=== PATIENT | female | born 1955 | race Caucasian/White ===

== ENCOUNTER → 2021-04-15 | Outpatient (CLI) | payer MEDICARE | END | disposition home or self-care (01) | LOC: SHCH 09:45 | PROVIDERS: ATTEND Internal Medicine | DX: I37.1 Nonrheumatic pulmonary valve insufficiency (principal); R94.31 Abnormal electrocardiogram [ECG] [EKG]; R01.1 Cardiac murmur, unspecified; R55 Syncope and collapse | CPT/HCPCS: 93306; 93356 ==

== ENCOUNTER → 2022-09-09 | Outpatient (CLI) | payer OTHER ==
[~2022-09-09] MED LIST: REGADENOSON 0.4 MG/5 ML PF SYG IVP ONE
== END | disposition home or self-care (01) ==
LOC: SHCH 08:09
PROVIDERS: ATTEND Internal Medicine
DX: R94.39 Abnormal result of other cardiovascular function study (principal); I45.10 Unspecified right bundle-branch block; R07.9 Chest pain, unspecified; I10 Essential (primary) hypertension
CPT/HCPCS: 78452; 96374; 93017; J2785; A9500 ×2

== ENCOUNTER → 2023-09-30 | Outpatient (CLI) | payer OTHER ==
[~2023-09-30] MED LIST changes: +ASPI-449 PO; +ATORVASTATIN PO; +LEVO125C4 PO; +LOSA50TA64 PO; +MELO-106 PO; +MULTIVITAMIN PO; +PANT40TA54 PO; -REGADENOSON 0.4 MG/5 ML PF SYG IVP ONE
== END | disposition home or self-care (01) ==
LOC: RAH 10:49
PROVIDERS: ATTEND Family Medicine
DX: M77.32 Calcaneal spur, left foot (principal); M79.672 Pain in left foot
CPT/HCPCS: 73650

== ENCOUNTER 2024-09-15 06:32 | Day surgery (SDC) | payer OTHER ==
[2024-09-14 10:06] LABS: BASOPHILS # (AUTO) 0.05 K/uL (0.00-0.20); BASOPHILS % (AUTO) 0.8 % (0.0-5.0); EOSINOPHILS # (AUTO) 0.12 K/uL (0.00-0.70); HEMATOCRIT 42.1 % (36-48); IMMATURE GRANULOCYTE ABSOLUTE 0.04 K/uL (0-1); LYMPHOCYTES # (AUTO) 0.7 K/uL (1.0-4.8); LYMPHOCYTES % (AUTO) 12.5 % (21.0-51.0); MEAN CORPUSCULAR HEMOGLOBIN 30.3 pg (27.0-33.0); MEAN CORPUSCULAR HGB CONC 33.5 g/dL (32.0-36.0); MEAN CORPUSCULAR VOLUME 90.5 fL (79-99); MONOCYTES # (AUTO) 0.4 K/uL (0.1-1.0); MONOCYTES % (AUTO) 6.8 % (3.0-13.0); NEUTROPHILS # (AUTO) 4.6 K/uL (1.8-7.7); NEUTROPHILS % (AUTO) 77.2 % (40.0-77.0); PLATELET COUNT (AUTO) 176 K/uL (130-400); RED BLOOD CELL COUNT(AUTO) 4.65 MIL/uL (4.00-5.50); RED CELL DISTRIBUTION WIDTH 13.7 % (11.0-15.5); WHITE BLOOD COUNT (AUTO) 5.9 K/uL (4.8-10.8)
[2024-09-14 10:19] VITALS: BP 159/73; PULSE 63; RESP 18; TEMP 97.9
[2024-09-14 10:20] LABS: POTASSIUM 4.4 mmol/L (3.5-5.1)
--- NOTE | 2024-09-14 10:45 | EKG ---
[facility] Test Date: 2024-09-14 Test Time: 10:34:28 Pat Name: LESTER DUMONT Department: [facility] Room: [facility] Gender: F Stockkeeper: [id number] : 1955 Requested By: JONH ECHEVERRIA Order Number: [id number] Reading MD: Paige Mejia Measurements Intervals [place] Rate: 58 P: 24 SC: 268 QRS: -24 QRSD: 180 T: 52 QT: 485 QTc: 477 Interpretive Statements Sinus rhythm Prolonged SC interval Right bundle branch block Compared to ECG 09/25/2022 09:59:18 Sinus bradycardia no longer present Electronically Signed On 09-15-2024 08:16:57 CLOTH WEIGHER by Paige Mejia Please click the below link to view image of tracing.
--- NOTE | 2024-09-14 14:14 | NUR ---
report dr holcomb reviewed ekg. ok to proceed
[2024-09-15] VITALS (12 sets, daily range): BP systolic 124–146; BP diastolic 54–87; PULSE 58–65; RESP 16–20; TEMP 97.3–208.2
[~2024-09-15] VITALS: Ht 170.2 cm; Wt 105.5 kg
[~2024-09-15 06:32] MED LIST changes: +HYDR25TA PO; -MELO-106 PO; -MULTIVITAMIN PO; +NYQUIL PO
[2024-09-15] MEDS: LACTATED RINGERS 1000ML 1,000 ML IV ONE (08:15)
[2024-09-15] MEDS ORDERED: GLYCOPYRROLATE 0.2 MG/ML 5 ML VIAL ONE (11:43)
[2024-09-15] MEDS ORDERED: dexaMETHasone SOD PHOSPHATE 10MG/ML 1ML VIAL ONE (11:43)
[2024-09-15] MEDS ORDERED: LIDOCAINE PF 100MG/5ML (2%) SYRINGE 5ML ONE (11:43)
[2024-09-15] MEDS ORDERED: SUCCINYLCHOLINE CHLORIDE 20 MG/ML 10 ML VIAL ONE (11:44)
[2024-09-15] MEDS ORDERED: proPOFol 10 MG/ML 20ML VIAL IV ONE (11:44)
[2024-09-15] MEDS ORDERED: rocuRONium bROMide 10MG/1ML 5ML VL ONE (11:44)
[2024-09-15] MEDS ORDERED: NEOSTIGMINE METHYLSULFATE 1MG/ML IV ONE (11:44)
[2024-09-15] MEDS ORDERED: FENTanyl CITRate PF 50 MCG/1 ML 2ML VIAL ONE (11:45)
[2024-09-15] MEDS ORDERED: MIDAZOLAM HCL 1 MG/ML 2ML VIAL ONE (11:45)
[2024-09-15] MEDS: ceFAZolin SODIUM 3 GM VIAL IVPB ONE (12:00)
[2024-09-15] MEDS: BUPIvacaine/PF 0.25% 30ML VIAL IJ ONE (12:05)
[2024-09-15] MEDS ORDERED: ePHEDrine SULFate 50 MG/ML AMPULE ONE (12:42)
[2024-09-15] MEDS ORDERED: ROPivacaine 0.5% 5MG/ML 30ML ONE (13:44)
--- NOTE | 2024-09-15 14:35 | OP ---
Operative Note: DATE OF PROCEDURE: 09/15/24 SURGEON: JONH ECHEVERRIA DPM SHEARING SHED HAND: None ANESTHESIA: General PREOPERATIVE DIAGNOSIS: 1. Hallux varus right foot 2. Hammertoe deformities 2nd through 4 right foot 3. Metatarsalgia 2nd through 4th right foot POSTOPERATIVE DIAGNOSIS: Same Findings: Severe lateral deviation of the lesser digits were noted PROCEDURE: 1. Modified Ch procedure right foot 2. Metatarsal osteotomies 2 through 4 metatarsals right foot 3. Correction of hammertoe deformity with PIPJ fusion and MPJ balancing 2 through 4 right foot ESTIMATED BLOOD LOSS: Minimal INDICATIONS: Patient has exhausted the conservative measures and now requesting surgical repair. Injectables: 20 cc of 0.25% Marcaine plain Specimen: None Materials: 2.2 mm cortical screws times a and 2.7 mm cortical screw x1, 4-0 Vicryl, 4-0 Prolene Hemostasis: Pneumonic calf tourniquet at 250 mm Hg DESCRIPTION OF PROCEDURE: Patient was brought into the operating room placed on table in a supine position and general anesthesia was induced. Time-out was called with all the staff in the room to identify the patient, procedure and procedure site. Pneumatic calf tourniquet was placed with adequate padding. Patient's right foot was prepped and draped in usual aseptic manner, exsanguinated utilizing Esmarch bandage and pneumonic calf tourniquet was inflated at 250 mm Hg. Procedure 1. Modified Ch procedure: Linear longitudinal incision of approximately 3 cm was made at the insertion of the abductor hallucis at around the 1st metatarsophalangeal joint. Subcutaneous tissue layer was dissected down to the deep fascial layer. The tendon of the abductor hallucis was then identified just proximal to the 1st metatarsophalangeal joint. It was isolated from the surrounding soft tissue and transected at the level proximal to the 1st MPJ. Procedure 2. Metatarsal osteotomies 2 through 4 column linear longitudinal incision was made from the MPJ to PIPJ of 2nd, 3rd and 4th rays. Incision was deepened through subcutaneous tissue layer care being taken to retract and protect all the vital neurovascular structures. Long extensor tendons were then transected at the level of the MPJ. Capsular layer was also transected transversely to relieve the dorsal contractures of the MPJ 2nd to 4th. Metatarsal heads 2 through 4 now exposed by releasing the collateral ligament. Oblique osteotomy was then made from distal dorsal to proximal plantar. The capital fragments of 2nd, 3rd and 4th metatarsals were then translated proximally laterally. The metatarsal heads were also angulated medially to reduce the laterally deviated lesser digits. Capital fragments were temporary fixated utilizing K-wires and the position of the metatarsal heads are confirmed under fluoroscopy in multiple views. Permanent fixation was achieved utilizing cortical screws x2 for each metatarsal bone. All the screws were placed in lag fashion following standard AO technique. Procedure 3. Correction of the hammertoe deformities 2 through 4 with PIPJ arthrodesis: At this point extensor tendon was transected at the level of the PIPJ and capsular dissection was taken to expose the base of the middle phalanges and heads of the proximal phalanges. Pre-drilling was then achieved into the proximal and middle phalanges and intramedullary screw fixation was achieved to stabilize the PIPJ is of digits 2 through 4. 2.2 mm cortical screws were utilized for 3rd and 4th digits and 2.7 mm cortical screw was utilized for the 2nd digit. Placement of the intramedullary screws were confirmed under fluoroscopy in multiple views. The surgical wounds were irrigated aggressively utilizing copious amounts of normal sterile saline with a pressure. Medial capsules of digits 2nd through 4t h were tighten to reduce the laterally deviated digit deformity. Subcutaneous tissue layer was reapproximated utilizing 4-0 Vicryl and skin via 4-0 Prolene. The fluoroscopy was utilized 1 more time to confirmed the placement of the internal fixation devices and alignment of the corrected deformity. Above injectable was utilized to obtain the local block. Surgical wounds were d ressed with dry sterile dressing followed by Berumen compression dressing. The patient tolerated the procedure and anesthesia well. JONH ECHEVERRIA DPM Sep 15, 2024 14:35
--- NOTE | 2024-09-15 16:37 | HMCIMG ---
FOOT COMP 3+VWS RT HISTORY: ORIF COMPARISON: None TECHNIQUE: Images of right foot were obtained. FINDINGS: Please see procedure report by referring physician. IMPRESSION: 1. Findings as described above.
== END 2024-09-15 16:35 | disposition home or self-care (01) ==
LOC: DAH 06:32
PROVIDERS: ATTEND Podiatrist
DX: M20.31 Hallux varus (acquired), right foot (principal); M20.41 Other hammer toe(s) (acquired), right foot; I45.10 Unspecified right bundle-branch block; I10 Essential (primary) hypertension; K21.9 Gastro-esophageal reflux disease without esophagitis; I25.10 Atherosclerotic heart disease of native coronary artery without angina pectoris; R00.1 Bradycardia, unspecified; E66.01 Morbid (severe) obesity due to excess calories; Z90.710 Acquired absence of both cervix and uterus; Z90.49 Acquired absence of other specified parts of digestive tract; Z98.82 Breast implant status; Z98.890 Other specified postprocedural states; Z79.01 Long term (current) use of anticoagulants; Z79.899 Other long term (current) drug therapy
CPT/HCPCS: 80048; 85025; 36415; 93005; 28309; 97161; 28285 ×3; 28240; 64445; 73630; 97116; 97530 ×2; A6260; C1713 ×4; A4663; J7120 ×2; A4649 ×2; J0690; J3010; J1100; J0330; J0665; J3490 ×3; J2003; J2250; J2704; J2710; J2795; A6445; A4930; A4215; A4223; A4222; A4221